=== PATIENT | female | born 1955 | race Two or more races ===

== ENCOUNTER → 2018-05-29 10:12 | Outpatient (CLI) | payer OTHER, SELFPAY ==
--- NOTE | 2018-05-28 | LES_PTH ---
PATIENT: JESSICA GILLILAND LOC: [facility] U#:[id number] AGE/SX: 69/F ROOM: RE05/29/[address]: Dr. Alex Garcia MD : 1955 BED: DIS: SPEC #: [id number] RECD: 05/29/18 09:59 STATUS: CHEN OH #: [id number] SMILEY: 05/28/18 00:[address]: Alex Garcia DEPT: SURGICAL PATHOLOGY RECD BY: Bailey Diop Tissues: Skin of eyelid, NOS Procedures: Surgery Specimen Level IV HEADER OPERATION: Removal of lesion, right upper eyelid PRE-OP DIAGNOSIS: Lesion, right upper eyelid TISSUE SUBMITTED: Lesion, right upper eyelid MICROSCOPIC DIAGNOSIS Right upper eyelid lesion, biopsy: Consistent with eccrine hidrocystoma. SJ:olga lidia 05/30/18 COMMENT Please make reference to previous specimen ([id number]), skin and soft tissue of right lower lid, excision and skin of left upper eyelid, excision with diagnosis of consistent with eccrine hidrocystoma. Case has been reviewed in consultation with Dr. Darden who concurs with the above diagnosis. IDC:AM MICROSCOPIC DESCRIPTION Slides are reviewed. GROSS DESCRIPTION Received in fixative is one container labeled with the patient's name and designated right upper eyelid. The specimen consists of a piece of jain-brown skin measuring 0.3 x 0.3 x 0.2 cm. The entire specimen is submitted in one cassette. / SJ:rg 05/29/18 TC:5 CPT: 69344
== END ==
PROVIDERS: Referring Provider Ophthalmology; Visit Provider Ophthalmology
DX: H02.9 Unspecified disorder of eyelid (principal)
CPT/HCPCS: 88305